=== PATIENT | male | born 1940 | race Caucasian/White ===

== ENCOUNTER → 2018-11-18 | Outpatient (REF) | payer MEDICARE ==
[~2018-11-18] MED LIST: ULTRAM50 M1 PO; ZOFRAN ODT4 MG PO
[2018-11-18 13:14] LABS: HEMATOCRIT 43.2 % (39.0-50.0); HEMOGLOBIN 13.7 g/dl (14.0-18.0); MEAN CELL VOLUME 90.6 fL CALC (80.0-100.0); MEAN CORPUSCULAR HGB 28.7 pG CALC (26.0-32.0); MEAN CORPUSCULAR HGB CONC 31.7 g/L CALC (32.0-36.0); RED BLOOD COUNT 4.77 mill/uL (4.70-6.10); RED CELL DISTRI WIDTH 13.5 % (11.5-15.5)
[2018-11-18 13:18] LABS: ALKALINE PHOSPHATASE 76 u/l (38-126); ANION GAP 14 (6-22 (CALC)); BILIRUBIN, TOTAL 0.7 mg/dL (0.0-1.4); BUN 14 mg/dL (8-23); BUN/CREATININE RATIO 15 (12-20 (CALC)); CALCULATED LDLCHOLESTEROL 48 mg/dL (62-129 (CALC)); CARBON DIOXIDE 30 mmol/l (22-30); CHLORIDE 102 mmol/l (95-108); CHOLESTEROL HDL RATIO 3.2 (<4.4 (CALC)); GFR > 60 ML/MIN (>=60 (CALC)); GFR FOR AFR.AMER. > 60 ML/MIN (>=60 (CALC)); HDL CHOLESTEROL 37 mg/dL (>=40); POTASSIUM 4.3 mmol/l (3.5-5.1); SGOT/AST 14 u/l (19-48); SODIUM 142 mmol/l (137-146); TOTAL CHOLESTEROL 121 mg/dl (0-199); TOTAL PROTEIN 6.6 g/dL (6.3-8.2); TOTAL TRIGLYCERIDES 176 mg/dl (30-149); VLDL CHOLESTROL 35 mg/dl (0-38 (CALC))
== END | disposition home or self-care (01) ==
LOC: DI 10:45
PROVIDERS: ATTEND Nurse Practitioner
DX: M25.562 Pain in left knee (principal); I10 Essential (primary) hypertension

== ENCOUNTER → 2018-11-26 | Outpatient (REF) | payer MEDICARE | END | disposition home or self-care (01) | LOC: MRI 12:33 | PROVIDERS: ATTEND Nurse Practitioner | DX: M25.562 Pain in left knee (principal) ==

== ENCOUNTER 2019-10-16 | Emergency (ER) | payer MEDICARE ==
[2019-10-16] MEDS ORDERED: IPRATROPIU0.5 MG/3 M IN (12:20)
[2019-10-16] MEDS ORDERED: AVODART0.5 MG PO (12:21)
[2019-10-16] MEDS ORDERED: PRAVASTATIN20 MG PO (12:21)
[2019-10-16] MEDS ORDERED: NORVASC5 M1 PO (12:23)
[2019-10-16] MEDS ORDERED: TERAZOSIN2 MG PO (12:23)
[2019-10-16] MEDS ORDERED: LOSARTAN POTASS50 MG PO (12:23)
[2019-10-16] MEDS ORDERED: EQ ASPIRIN81 M1 PO (12:24)
[2019-10-16] MEDS ORDERED: BREO ELLIPTA1 INH IN (12:25)
[2019-10-16] MEDS ORDERED: PRESERVISION PO (12:25)
[2019-10-16] MEDS ORDERED: PRILOSEC20 MG/CAP PO (12:25)
[2019-10-16] MEDS ORDERED: ACETAMIN500 M2 PO (12:26)
[2019-10-16 12:59] LABS: HEMATOCRIT 39.6 % (39.0-50.0); HEMOGLOBIN 12.4 g/dl (14.0-18.0); IMMATURE GRANULOCYTES 0.4 % (0.0-5.0); MEAN CELL VOLUME 85.7 fL CALC (80.0-100.0); MEAN CORPUSCULAR HGB 26.8 pG CALC (26.0-32.0); MEAN CORPUSCULAR HGB CONC 31.3 g/L CALC (32.0-36.0); NEUT# 8.98 thou/uL (1.82-7.42); RED BLOOD COUNT 4.62 mill/uL (4.70-6.10); RED CELL DISTRI WIDTH 14.6 % (11.5-15.5)
[2019-10-16 13:11] LABS: URINE BILIRUBIN - DIPSTICK NEGATIVE (NEGATIVE); URINE BLOOD DIPSTICK LARGE (NEGATIVE); URINE GLUCOSE - DIPSTICK NEGATIVE (NEGATIVE); URINE KETONE TRACE mg/dL (NEGATIVE); URINE PH 6.5 (4.5-8.0); URINE PROTEIN - DIPSTICK >=300 mg/dL (NEG-TRACE)
[2019-10-16 13:18] LABS: URINE COLOR BROWN; URINE LEUK ESTERASE MODERATE (NEGATIVE); URINE NITRITE - DIPSTICK POSITIVE (Negative)
[2019-10-16 13:19] LABS: URINE BACTERIA MODERATE hpf; URINE EPITHELIAL CELLS FEW EPI/hpf (0-FEW); URINE RBC >100 RBC/hpf (0-5)
[2019-10-16 13:20] LABS: ACT PARTIAL THROMBO TIME 28.3 SECONDS (20.0-32.5); PROTHROMBIN TIME 10.4 SECONDS (9.0-12.5)
[2019-10-16 13:24] LABS: ALBUMIN 3.8 g/dL (3.2-5.0); ALKALINE PHOSPHATASE 68 u/l (38-126); ANION GAP 13 (6-22 (CALC)); BILIRUBIN, TOTAL 0.7 mg/dL (0.0-1.4); BUN 20 mg/dL (8-23); BUN/CREATININE RATIO 18 (12-20 (CALC)); CARBON DIOXIDE 25 mmol/l (22-30); CHLORIDE 107 mmol/l (95-108); CREATININE 1.1 mg/dL (0.7-1.3); GFR > 60 ML/MIN (>=60 (CALC)); GFR FOR AFR.AMER. > 60 ML/MIN (>=60 (CALC)); POTASSIUM 3.8 mmol/l (3.5-5.1); SODIUM 141 mmol/l (137-146); TOTAL PROTEIN 6.8 g/dL (6.3-8.2)
[2019-10-16 13:31] LABS: SGOT/AST 25 u/l (19-48)
[2019-10-16] MEDS ORDERED: CIPROFLOXACN500 MG PO (15:04)
== END 2019-10-16 16:00 | disposition home or self-care (01) ==
DX: N39.0 Urinary tract infection, site not specified (principal); I10 Essential (primary) hypertension; B96.4 Proteus (mirabilis) (morganii) as the cause of diseases classified elsewhere; R31.9 Hematuria, unspecified; N40.0 Benign prostatic hyperplasia without lower urinary tract symptoms
CPT/HCPCS: Q9967